=== PATIENT | male | born 1995 | race Caucasian/White ===

== ENCOUNTER 2017-02-19 19:28 | Emergency (ER) | payer OTHER ==
[~2017-02-19] VITALS: Ht 188 cm; Wt 99.3 kg
[2017-02-19 19:29] VITALS: O2SAT 98; Ht 188 cm; Wt 99.3 kg
[2017-02-19] MEDS ORDERED: SODIUM CHLORIDE 0.9% 500ML 500 ML IV STA (19:55)
[2017-02-19] MEDS ORDERED: NITROGLYCERIN 0.4 MG SL PER TAB CHARGE SL STA (19:55)
[2017-02-19] MEDS ORDERED: LORAZEPAM 2 MG/ML 1 ML VIAL IV STA (19:55)
[2017-02-19] MEDS ORDERED: NITROGLYCERIN 0.4 MG SL PER TAB CHARGE ONE (20:03)
[2017-02-19] MEDS ORDERED: LORAZEPAM 2 MG/ML 1 ML VIAL ONE (20:03)
--- NOTE | 2017-02-19 20:11 | EMERGENCY ROOM VISIT NOTE ---
History Chief Complaint: FOOD BOLUS Stated Complaint: FOOD LODGED IN THROAT Nursing Triage Summary: Pt reports he has a piece of steak stuck. It happened 20 minutes ago. Pt unable to swallow. History of Present Illness The patient is a 21 year old male who presents to the Emergency Room with complaints of food stuck in his esophagus -Pt says it happened 25 minutes ago around 715 while eating steak. -Pt says that he had the sensation that his food was stuck, thought that he was choking -Patient says that he has no problems breathing. -Pt denies getting food stuck in the past. -Pt denies GERD. -Pt is otherwise healthy. Reports no allergies. Review of Systems see below Constitutional: No fever, No chills, No sweats Respiratory: No sputum, No wheezing, No shortness of breath Cardiovascular: No chest pain Abdomen: No pain, No nausea, No vomiting, No diarrhea Past Medical/Surgical History Medical Problems: (1) No chronic problems Social History Smoking Status: Never Smoker Current/Historical Medications No Active Prescriptions or Reported Meds Physical Exam Vital Signs Date Time Temp Pulse Resp B/P (MAP) Pulse Ox O2 Delivery O2 Flow Rate FiO2 02/19/17 21:50 36.6 63 18 139/77 99 Room Air 02/19/17 21:40 77 18 138/84 99 Oxymask 3 02/19/17 21:30 75 16 145/76 98 Oxymask 3 02/19/17 21:22 36.4 84 16 164/99 97 Oxymask 5 02/19/17 19:29 98 Room Air 02/19/17 19:29 36.9 65 20 155/93 97 Room Air Physical Exam see below General Appearance: WD/WN, + mild distress Head: normocephalic, atraumatic ENT: pharynx normal Respiratory/Chest: chest non-tender, lungs clear, normal breath sounds, no respiratory distress, no accessory muscle use Cardiovascular: regular rate, rhythm, no edema, no gallop, no JVD, no murmur Medical Decision & Procedures ED Course 19:30 History and physical performed 19:45 Consulted with GI 20:00 ordered ativan and nitro 20:30 pt seen by GI taken for EGD Medical Decision 21 yo male comes into the ED today with food bolus obstructing esophagus Discussed with patient the likely amador of obstruction due to esophageal stricture, Schatzki rings. Other possible causes of obstruction functional vs motility issues: achalasia, scleroderma, neoplasm Gave patient Ativan and nitro in attempt to relax esophagus. Pt was seen by GI and taken for EGD---> found large food bolus and ulceration and inflammation at site of food bolus. Esophagus appeared otherwise normal: no other stricture or mass seen. Impression Primary Impression: Esophageal obstruction Departure Information Prescriptions No Active Prescriptions or Reported Meds Referrals No Doctor, Assigned (PCP) Patient Instructions [facility]
[2017-02-19] MEDS ORDERED: SUCCINYLCHOLINE CHLORIDE 20 MG/ML 10 ML VIAL IV ONE (20:23)
[2017-02-19] MEDS ORDERED: PROPOFOL IV EMULSION 10 MG/ML 20 ML VIAL IV ONE (20:23)
[2017-02-19] MEDS ORDERED: FENTANYL CITRATE INJ 50 MCG/1 ML 2 ML VIAL ONE (20:24)
[2017-02-19] MEDS ORDERED: MIDAZOLAM HCL 1 MG/ML 2ML VIAL ONE (20:24)
[2017-02-19] MEDS ORDERED: ATROPINE SULFATE 0.1 MG/ML 5ML SYR IV PRN (20:45)
[2017-02-19] MEDS ORDERED: ONDANSETRON INJ 2 MG/ML 2 ML VIAL IV PRN (20:45)
[2017-02-19] MEDS ORDERED: EpHEDrine SULFATE INJ 50 MG/ML AMP IV PRN (20:45)
--- NOTE | 2017-02-19 20:55 | Endo History and Physical ---
History & Physical Date of Service: Feb 19, 2017. Chief Complaint: food in throat Referring Physician: ER History of Present Illness Ate steak at 7. Has not been able to swallow saliva since that time. Past Medical History none Family History non-contributory Social History Smoking Status: Never Smoker Smokeless Tobacco Use: No Hx Substance Use: No Hx Alcohol Use: No Allergies Coded Allergies: No Known Allergies (Unverified , 02/19/17) Current Medications Reported Home Medications Medications Dose Route/Sig Max Daily Dose Days Date Category No Active Prescriptions or Reported Medications Rx Vital Signs Weight (Kilograms): 99.300 Height (Feet): 6 Height (Inches): 2.00 Date Time Temp Pulse Resp B/P (MAP) Pulse Ox O2 Delivery O2 Flow Rate FiO2 02/19/17 19:29 98 Room Air 02/19/17 19:29 36.9 65 20 155/93 97 Room Air Physical Exam General Appearance: WD/WN, no apparent distress Assessment and Plan EGD today for food bolus
[2017-02-19] MEDS ORDERED: ONDANSETRON INJ 2 MG/ML 2 ML VIAL ONE (21:12)
--- NOTE | 2017-02-19 21:16 | GI REPORT ---
Procedure Date: 02/19/2017 8:54 PM Procedure: Upper GI endoscopy Indications: Foreign body in the esophagus - ate steak at 7PM, unable to manage secretions since that time Medicines: General Anesthesia Complications: No immediate complications. Estimated blood loss: Minimal. Estimated Blood Loss: Estimated blood loss was minimal. Procedure: Pre-Anesthesia Assessment: - Prior to the procedure, a History and Physical was performed, and patient medications, allergies and sensitivities were reviewed. The patient's tolerance of previous anesthesia was reviewed. - The risks and benefits of the procedure and the sedation options and risks were discussed with the patient. All questions were answered and informed consent was obtained. - Patient identification and proposed procedure were verified prior to the procedure by the physician and the nurse. The procedure was verified in the pre-procedure area in the procedure room. - Mental Status Examination: alert and oriented. Airway Examination: normal oropharyngeal airway and neck mobility. Respiratory Examination: clear to auscultation. CV Examination: normal. Abdominal Examination: bowel sounds present, abdomen soft and non-tender, no masses or organomegaly noted. - ASA Grade Assessment: I - A normal, healthy patient. After obtaining informed consent, the endoscope was passed under direct vision. Throughout the procedure, the patient's blood pressure, pulse, and oxygen saturations were monitored continuously. The scope was introduced through the mouth, and advanced to the second part of duodenum. The upper GI endoscopy was accomplished without difficulty. The patient tolerated the procedure well. Findings: Food was found in the middle third of the esophagus. Removal of food was accomplished. A medium amount of food (residue) was found in the gastric body. The examined duodenum was normal. Impression: - Food in the middle third of the esophagus. The food spontaneously passed without direct pressure when the scope was introduced and air insufflated. Removal was successful. - A medium amount of food (residue) in the stomach. - Normal examined duodenum. Recommendation: - Follow an antireflux regimen. - Use Prilosec (omeprazole) 20 mg PO BID for 6 weeks. - Use sucralfate suspension 1 gram PO QID for 10 days. - Repeat the upper endoscopy in 1-2 weeks to check healing. - Return to primary care physician as previously scheduled. - Discharge patient to home. Chapis Plasencia D.O. Chapis Plasencia DO 02/19/2017 9:15:41 PM This report has been signed electronically. Note Initiated On: 02/19/2017 8:54 PM I attest to the content of the Intraoperative Record and orders documented therein, exceptions below
--- NOTE | 2017-02-19 21:19 | Discharge Instructions ---
Endoscopy Patient Instructions Date / Procedure(s) Performed Feb 19, 2017. EGD Allergy Information Coded Allergies: No Known Allergies (Unverified , 02/19/17) Discharge Date / Findings Feb 19, 2017. food in the mid esophagus - dislodged when scope introduced into the esophagus. Inflammation and small superficial ulceration at the site where the food was lodged Medication Instructions Take omeprazole 20 mg twice a day for the next 4-6 weeks Take carafate liquid 4 times a day for 10 days Provider Instructions Activity Restrictions - No exercising or heavy lifting for 24 hours. - Do not drink alcohol the day of the procedure. - Do not drive a car or operate machinery until the day after the procedure. - Do not make any important decisions or sign important papers in 24 hours after the procedure. Following Day: - Return to full activity which may include returning to work/school. Diet Start your diet with liquids and light foods (jello, soup, juice, toast). Then eat your usual diet if not nauseated. Treatment For Common After Affects For mild abdominal pain, bloating, or excessive gas: - Rest - Eat lightly - Lie on right side Call [phone] to schedule a repeat outpatient endoscopy to check for healing and possible dilation Follow-Up Information Follow-up with as scheduled Anesthesia Information What You Should Know You have had a procedure that required some medicine to reduce anxiety and discomfort. This treatment is called moderate sedation. After receiving the treatment, you may be sleepy, but you will be able to breathe on your own. The effects of the treatment may last for several hours. Follow these instructions along with Activity/Diet recommendations noted above: * Do NOT do anything where dizziness or clumsiness would be dangerous. * Rest quietly at home today, then you can be up and about tomorrow. * Have a responsible person stay with you the rest of today. * You may have had an I.V. today. If so, you may take the dressing off later today. Recommendations Call your doctor if: * Trouble breathing * Continuous vomiting for more than 24 hours * Temperature above 101 degrees * Severe abdominal pain or bloating * Pain not relieved by pain medicine ordered * There is increased drainage or redness from any incision * A large amount of rectal bleeding greater than 2-3 tablespoons. (If you had a polyp/s removed or have hemorrhoids, a small amount of blood - from the rectum is to be expected.) * You have any unanswered questions or concerns. IN THE EVENT OF A SERIOUS EMERGENCY, GO TO THE NEAREST EMERGENCY ROOM Your discharge instructions were prepared by provider Chapis Plasencia. Patient Instructions Signature Page Alexandre Lovell Patient (or Guardian) Signature/Date: I have read and understand the instructions given to me by my caregivers. Caregiver/RN/Doctor Signature/Date: The above-named patient and/or guardian has received patient instructions on this date. + Original Patient Signature Page (only) stays with chart. Please make copy for patient.
--- NOTE | 2017-02-19 21:37 | Anesthesiology Progress Note ---
Anesthesia Post Op Note Date & Time Feb 19, 2017 at 21:37 Vital Signs Pain Intensity: 0 Vital Signs Past 12 Hours Date Time Temp Pulse Resp B/P (MAP) Pulse Ox O2 Delivery O2 Flow Rate FiO2 02/19/17 21:30 75 16 145/76 98 Oxymask 3 02/19/17 21:22 36.4 84 16 164/99 97 Oxymask 5 02/19/17 19:29 98 Room Air 02/19/17 19:29 36.9 65 20 155/93 97 Room Air Notes Mental Status: alert / awake / arousable, participated in evaluation Pt Amnestic to Procedure: Yes Nausea / Vomiting: adequately controlled Pain: adequately controlled Airway Patency, RR, SpO2: stable & adequate BP & HR: stable & adequate Hydration State: stable & adequate Anesthetic Complications: no major complications apparent
[2017-02-19 22:01] VITALS: BP 140/87; PULSE 66; TEMP 36.6; O2SAT 97
--- NOTE | 2017-02-19 22:05 | EMERGENCY ROOM VISIT NOTE ---
History Report prepared by Ramiro: Luz Maria Caceres Under the Supervision of: Dr. Forrest Jenkins D.O. First contact with patient: 19:33 Chief Complaint: FOOD BOLUS Stated Complaint: FOOD LODGED IN THROAT Nursing Triage Summary: Pt reports he has a piece of steak stuck. It happened 20 minutes ago. Pt unable to swallow. History of Present Illness The patient is a 21 year old male who presents to the Emergency Room with complaints of a persistent food bolus starting 30 minutes ago. The patient was hastily eating a steak when he swallowed a large piece which got stuck in his throat. He is unable to swallow anything and is spitting out his own saliva. He has never had this before. He has been otherwise feeling well and does not have any other complaints. Source of History: patient Onset: 30 minutes ago Position: other (global) Quality: other (food bolus) Timing: other (persistent) Note: Pt is unable to swallow. Review of Systems See HPI for pertinent positives & negatives. A total of 10 systems reviewed and were otherwise negative. Past Medical & Surgical Medical Problems: (1) No chronic problems Family History No pertinent family history stated. Social History Smoking Status: Never Smoker Occupation Status: student Current/Historical Medications No Active Prescriptions or Reported Meds Allergies Coded Allergies: No Known Allergies (Unverified , 02/19/17) Physical Exam Vital Signs Date Time Temp Pulse Resp B/P (MAP) Pulse Ox O2 Delivery O2 Flow Rate FiO2 02/19/17 22:01 36.6 66 18 140/87 97 Room Air 02/19/17 22:00 67 18 140/87 98 Room Air 02/19/17 21:50 36.6 63 18 139/77 99 Room Air 02/19/17 21:40 77 18 138/84 99 Oxymask 3 02/19/17 21:30 75 16 145/76 98 Oxymask 3 02/19/17 21:22 36.4 84 16 164/99 97 Oxymask 5 02/19/17 19:29 98 Room Air 02/19/17 19:29 36.9 65 20 155/93 97 Room Air Physical Exam CONSTITUTIONAL/VITAL SIGNS: Reviewed / noted above. GENERAL: Non-toxic in appearance. Pt is spitting out his saliva, failed liquid PO challenge. INTEGUMENTARY: Warm, dry, and [place]. HEAD: Normocephalic. EYES: without scleral icterus or trauma. ENT/OROPHARYNX: clear and moist. LYMPHADENOPATHY/NECK: Is supple without lymphadenopathy or meningismus. RESPIRATORY: Lungs clear and equal. CARDIOVASCULAR: Regular rate and rhythm. GI/ABDOMEN: Soft and nontender. No organomegaly or pulsatile mass. No rebound or guarding. Normal bowel sounds. EXTREMITIES: Warm and well perfused. BACK: No CVA tenderness. NEUROLOGICAL: Intact without focal deficits. PSYCHIATRIC: normal affect. MUSCULOSKELETAL: Normally developed with good muscle tone. Medical Decision & Procedures ED Course 1945: Previous medical records were reviewed. The patient was evaluated in room C6. A complete history and physical examination was performed. 1951: I discussed the patient's case with [facility] Barakat gastroenterology. She will come evaluate the patient for further management. 1956: I reevaluated the patient. He is stable. I discussed the results with him. He verbalized agreement of the treatment plan. He will be evaluated by Dr. Plasencia for further management. Medical Decision Differential includes esophageal obstruction, perforation, mass. This is a 21-year-old male who was eating steak shortly prior to arrival. He states that he was eating quickly. It causes obstruction and he is unable to swallow his saliva. I spoke with Dr. Plasencia about the patient. She recommended some treatment with IV medications. IV Ativan was administered as well as sublingual nitroglycerin. The patient also received IV fluids. The patient's symptoms would not resolve. He was taken to the operating room for removal Medication Reconcilliation Current Medication List: was personally reviewed by me Blood Pressure Screening Patient's blood pressure: Elevated blood pressure Blood pressure disposition: Elevated BP felt to be situational Consults Time Called: 1946 Consulting Physician: Africa Barakat gastroenterology Returned Call: 1951 I discussed the patient's case with her. She will come evaluate the patient for further management. Impression Primary Impression: Esophageal obstruction Scribe Attestation The scribe's documentation has been prepared under my direction and personally reviewed by me in its entirety. I confirm that the note above accurately reflects all work, treatment, procedures, and medical decision making performed by me. Departure Information Dispostion Being Evaluated By Surgeon Prescriptions No Active Prescriptions or Reported Meds Referrals No Doctor, Assigned (PCP) Patient Instructions [facility]
[2017-02-19 22:15] VITALS: BP 136/83; PULSE 73; TEMP 36.6; O2SAT 97
== END 2017-02-19 20:46 | disposition still patient (30) ==
LOC: C.EDB 19:29 → C.EDC 20:46
DX: T18.128A Food in esophagus causing other injury, initial encounter (principal); X58.XXXA Exposure to other specified factors, initial encounter; Z68.28 Body mass index [BMI] 28.0-28.9, adult; Z98.890 Other specified postprocedural states